=== PATIENT | male | born 1985 | race Caucasian/White ===

== ENCOUNTER 2016-12-23 23:04 | Emergency (ER) | payer MEDICAID ==
[~2016-12-23] VITALS: Ht 182.9 cm; Wt 108.9 kg
[2016-12-23 23:04] VITALS: BP 147/86
[2016-12-23] MEDS ORDERED: IBUPROFEN 400 MG TABLET ONE (23:38)
[2016-12-24] MEDS ORDERED: IBUPROFEN 400 MG TABLET PO ONE
== END 2016-12-23 23:48 | disposition home or self-care (01) ==
LOC: ER 23:09
DX: M94.0 Chondrocostal junction syndrome [Tietze] (principal); J06.9 Acute upper respiratory infection, unspecified
CPT/HCPCS: A4606; Z7610

== ENCOUNTER 2017-01-03 01:03 | Emergency (ER) | payer MEDICAID ==
[~2017-01-03] VITALS: Ht 165.1 cm; Wt 65.8 kg
[2017-01-03 01:10] VITALS: BP 117/71
== END 2017-01-03 01:56 | disposition home or self-care (01) ==
LOC: ER 01:03
DX: R07.89 Other chest pain (principal)
CPT/HCPCS: 71010; 93005; 99284; A4606; Z7610

== ENCOUNTER 2018-01-23 19:13 | Emergency (ER) | payer MEDICAID ==
[~2018-01-23] VITALS: Ht 182.9 cm; Wt 112.5 kg
[2018-01-23 19:17] VITALS: BP 145/84
[2018-01-23] MEDS ORDERED: IBUPROFEN 600 MG TABLET PO ONE (21:00)
== END 2018-01-23 22:34 | disposition home or self-care (01) ==
LOC: ER 19:14
DX: J06.9 Acute upper respiratory infection, unspecified (principal); G47.00 Insomnia, unspecified; Z90.89 Acquired absence of other organs
CPT/HCPCS: 71045; 99283; A4606; Z7610

== ENCOUNTER 2019-02-27 11:44 | Emergency (ER) | payer MEDICAID ==
[~2019-02-27] VITALS: Ht 182.9 cm; Wt 108.4 kg
--- NOTE | 2019-02-27 12:05 | NUR ---
CAME IN FOR COUGH AND CONGESTION X 3 DAYS. TO ER BED 18 CH1, HOOKED TO MONITOR, PT AOX 4, NOT IN DISTRESS, AWAITING MD VALENZUELA
--- NOTE | 2019-02-27 12:42 | NUR ---
MARIE BOGGS AT BEDSIDE
[2019-02-27] MEDS ORDERED: IPRATROPIUM NEB FS 0.5 MG/2.5 ML AMPUL.NEB NEB ONE (13:00)
[2019-02-27] MEDS ORDERED: predniSONE 20 MG TABLET PO ONE (13:00)
[2019-02-27] MEDS ORDERED: ALBUTEROL FS 2.5 MG/3 ML VIAL.NEB NEB ONE (13:00)
[2019-02-27] MEDS ORDERED: predniSONE 20 MG TABLET ONE (13:06)
[2019-02-27] MEDS ORDERED: ALBUTEROL FS 2.5 MG/3 ML VIAL.NEB ONE (13:11)
[2019-02-27] MEDS ORDERED: IPRATROPIUM NEB FS 0.5 MG/2.5 ML AMPUL.NEB ONE (13:11)
--- NOTE | 2019-02-27 14:02 | NUR ---
Patient discharged to home in stable condition. Written and verbal after care instructions given. Patient verbalizes understanding of instruction.
[2019-02-27 14:03] VITALS: BP 138/88
== END 2019-02-27 14:09 | disposition home or self-care (01) ==
LOC: ER 11:51
DX: J40 Bronchitis, not specified as acute or chronic (principal); G47.30 Sleep apnea, unspecified; Z90.89 Acquired absence of other organs
CPT/HCPCS: 71045; 94640; 99283; J7512

== ENCOUNTER 2020-03-16 14:43 | Emergency (ER) | payer MEDICAID ==
[~2020-03-16] VITALS: Ht 182.9 cm; Wt 117.0 kg
[2020-03-16 14:52] VITALS: BP 128/79
--- NOTE | 2020-03-16 16:23 | NUR ---
Patient discharged to home in stable condition. Written and verbal after care instructions given. Patient verbalizes understanding of instruction. Pt ambulatory with a steady gait
== END 2020-03-16 16:25 | disposition home or self-care (01) ==
LOC: ER 14:45
DX: J06.9 Acute upper respiratory infection, unspecified (principal); Z90.89 Acquired absence of other organs
CPT/HCPCS: 71045-TC

== ENCOUNTER 2020-03-21 17:06 | Emergency (ER) | payer MEDICAID ==
[~2020-03-21] VITALS: Ht 185.4 cm; Wt 102.1 kg
[2020-03-21] MEDS ORDERED: ACETAMINOPHEN 325 MG TABLET PO ONE (18:00)
[2020-03-21] MEDS ORDERED: ACETAMINOPHEN ES 500 MG TABLET ONE (18:00)
--- NOTE | 2020-03-21 18:15 | NUR ---
[facility] SWAB DONE AND SENT TO LAB
[2020-03-21 18:24] VITALS: BP 121/77
--- NOTE | 2020-03-21 18:25 | NUR ---
Patient discharged to home in stable condition. Written and verbal after care instructions given. Patient verbalizes understanding of instruction. Pt ambulatory with a steady gait
[2020-03-22] MEDS ORDERED: LIDOCAINE VISCOUS 2% UD 15 ML UDC ONE (23:19)
[2020-03-22] MEDS ORDERED: ONDANSETRON HCL/PF 4 MG/2 ML VIAL ONE (23:19)
[2020-03-22] MEDS ORDERED: MAG HYDROX/AL HYDROX/SIMETH 30 ML UDC ONE (23:19)
[2020-03-22] MEDS ORDERED: FAMOTIDINE/PF INJ 20 MG/2 ML VIAL IV ONE (23:21)
== END 2020-03-21 18:26 | disposition home or self-care (01) ==
LOC: ER 17:10
DX: U07.1 COVID-19 (principal); G47.30 Sleep apnea, unspecified
CPT/HCPCS: 99283; C9803; U0003; J2405; J3490